=== PATIENT | female | born 1985 | race Caucasian/White ===

== ENCOUNTER → 2019-10-24 | Outpatient (CLI) | payer OTHER | LOC: ULTRA 08:24 | DX: R94.5 Abnormal results of liver function studies (principal) ==

== ENCOUNTER → 2020-01-22 | Outpatient (CLI) | payer OTHER ==
[2020-01-22 10:10] LABS: ABSOLUTE NEUTROPHILS 5.8 thou/uL (1.4-8.2); BASOPHILS 0.3 % (0.0-2.0); EOSINOPHILS 3.1 % (0.0-3.0); HEMATOCRIT 42.7 % (37.0-47.0); HEMOGLOBIN 14.5 gm/dL (12.0-15.0); LYMPHOCYTES 28.6 % (24.0-44.0); MCH 30.3 pg (26.0-34.0); MCHC 34.1 g/dL (28.0-37.0); MCV 88.9 fL (80.0-100.0); MONOCYTES 6.2 % (1.0-8.0); PLATELET COUNT 360 thou/uL (150-400); POLYS 61.8 % (36.0-66.0); RBC 4.81 mil/uL (4.20-5.00); RDW 12.8 % (10.5-14.5); WBC 9.4 thou/uL (4.0-11.0)
[2020-01-22 10:40] LABS: ALBUMIN 3.9 g/dL (3.4-5.0); ANION GAP 10 mmol/L (7-16); BUN 10 mg/dL (7-18); CALCIUM 8.8 mg/dL (8.5-10.1); CHLORIDE 100 mmol/L (98-107); CHOLESTEROL 109 mg/dL (<200); CO2 27 mmol/L (21-32); CREATININE 0.7 mg/dL (0.6-1.0); GLUCOSE 91 mg/dL (74-106); HDL CHOLESTEROL 24 mg/dL (>40); LDL CHOLESTEROL 59 mg/dL (<100); POTASSIUM 4.2 mmol/L (3.5-5.1); SGOT 21 U/L (15-37); SGPT 48 U/L (30-65); SODIUM 137 mmol/L (136-145); TC:HDL 4.5 Ratio (Not establshd); TOTAL BILIRUBIN 0.3 mg/dL (0.2-1.0); TOTAL PROTEIN 7.3 g/dL (6.4-8.2); TRIGLYCERIDE 132 mg/dL (<150); VLDL 26 mg/dL (<40)
[2020-01-23 02:07] LABS: GLYCOHEMOGLOBIN (HGB A1C) 5.6 % (4.8-5.6)
== END ==
LOC: LABMALL 06:42
PROVIDERS: ATTEND Nurse Practitioner
DX: E11.9 Type 2 diabetes mellitus without complications (principal)